=== PATIENT | female | born 1995 ===

== ENCOUNTER 2016-10-09 22:40 | Emergency (ER) | payer OTHER ==
[2016-10-09 22:50] VITALS: BP 114/80; PULSE 84; RESP 20; TEMP 98.8; O2SAT 100
--- NOTE | 2016-10-09 23:45 | C.PDOC ---
History Of Present Illness A 21 y/o female presents to the ER c/o difficulty opening her mouth for the last couple of hours. Patient notes she woke up asymptomatic then when she was yawning and felt immediate tightness to both sides of her jaw. Patient had a hx of similar episode in the past that resolves with Motrin and Ibuprofen. Patient took Ibuprofen [employer], but pain is still presents with some improvements. Denies dental pain, sore throat, fever, chills, SOB, chest pain, or swollen gums. Patient had not seen her dentist since her last episode. Denies grinding teeth. Time Seen by Provider: 10/09/16 22:51 Chief Complaint (Nursing): ENT Problem History Per: Patient History/Exam Limitations: None Onset/Duration Of Symptoms: Hrs Current Symptoms Are (Timing): Still Present Severity: Mild Past Medical History Reviewed: Historical Data, Nursing Documentation, Vital Signs Vital Signs: Last Vital Signs Temp 98.8 F 10/09/16 22:46 Pulse 84 10/09/16 22:46 Resp 20 10/09/16 22:46 BP 114/80 10/09/16 22:46 Pulse Ox 100 10/10/16 00:12 Family History: States: Unknown Family Hx - Social History Hx Alcohol Use: No Hx Substance Use: No - Immunization History Hx Tetanus Toxoid Vaccination: No Hx Influenza Vaccination: No Hx Pneumococcal Vaccination: No Review Of Systems Except As Marked, All Systems Reviewed And Found Negative. Constitutional: Negative for: Fever, Chills ENT: Positive for: Other (DIfficulty opening mouth). Negative for: Mouth Pain ( Dental pain), Mouth Swelling (Swollen gums) Cardiovascular: Negative for: Chest Pain Respiratory: Negative for: Shortness of Breath Physical Exam - Physical Exam Appears: Well, Non-toxic, No Acute Distress Skin: Warm, Dry Head: Atraumatic, Normacephalic, Tenderness (Mild tenderness to the bilateral TMJ) Eye(s): bilateral: Normal Inspection, EOMI Ear(s): Bilateral: Normal Nose: Normal Oral Mucosa: Moist Tongue: Normal Appearing, No Swelling Teeth: Normal Dentition Throat: No Erythema, No Exudate Neck: Normal ROM, Supple Lymphatic: Normal Exam Chest: Symmetrical Cardiovascular: Rhythm Regular Respiratory: Normal Breath Sounds, No Rales, No Rhonchi, No Wheezing, Other ( Speaking full sentences) Gastrointestinal/Abdominal: Soft, No Tenderness Neurological/Psych: Oriented x3, Normal Speech, Normal Cognition ED Course And Treatment O2 Sat by Pulse Oximetry: 100 (RA) Pulse Ox Interpretation: Normal Progress Note: Plans: Flexeril. On reassessment, patient is resting comfortably , and is in no acute distress. Patient was instructed to follow up with dentist in 1-2 days for further evaluation. Case discussed with Dr Moore, agreed upon plan and discharge. Disposition - Disposition Referrals: [facility] [Outside] Disposition: HOME/ ROUTINE Disposition Time: 23:43 Condition: STABLE Additional Instructions: Follow up with your dentist in 2-5 days for further evaluation. Take medications as prescribed. Return to the emergency department at any time if symptoms persist or worsen. Prescriptions: Cyclobenzaprine [Cyclobenzaprine HCl] 10 mg PO TID #20 tab Ibuprofen [Motrin] 600 mg PO Q6 PRN #20 tab PRN Reason: Pain, Mild (1-3) Instructions: Temporomandibular Disorder (ED) Forms: [employer] ([employer]) - Clinical Impression Clinical Impression: Jaw pain - Scribe Statement The provider has reviewed the documentation as recorded by the Scribe Senait [email or web address] All medical record entries made by the Scribe were at my direction and personally dictated by me. I have reviewed the chart and agree that the record accurately reflects my personal performance of the history, physical exam, medical decision making, and the department course for this patient. I have also personally directed, reviewed, and agree with the discharge instructions and disposition.
== END 2016-10-09 23:45 | disposition home or self-care (01) ==
LOC: C.ER 22:40
DX: R68.84 Jaw pain (principal)